=== PATIENT | female | born 1995 | race African-American/Black ===

== ENCOUNTER 2017-06-06 22:25 | Emergency (ER) | payer MEDICAID ==
[~2017-06-06] VITALS: Ht 165.1 cm; Wt 104.3 kg
[2017-06-06 22:47] VITALS: BP 126/57
[2017-06-06 23:44] LABS: Basophils # (auto) 0.1 uL; Basophils % (auto) 0.5 % (0.0-2.0); CONDITION Y; DEFINITIVE SEE PRINTOUT; Eosinophils # (auto) 0.2 uL; Eosinophils % (auto) 1.7 % (0.0-7.0); Hematocrit 34.2 % (36.0-46.0); Hemoglobin 10.8 g/dL (12.2-16.2); Lymphocytes # (auto) 4.3 uL; Lymphocytes % (auto) 42.3 % (10.0-50.0); Mean Corpuscular Hemoglobin 20.4 pg (28.0-32.0); Mean Corpuscular Hgb Conc. 31.4 g/dL (32.0-36.0); Mean Corpuscular Volume 64.8 fL (80.0-100.0); Mean Platelet Volume 7.4 fL (7.4-10.4); Monocytes # (auto) 0.5 uL; Monocytes % (auto) 4.8 % (0.0-12.0); Neutrophils # (auto) 5.2 uL; Neutrophils % (auto) 50.7 % (37.0-80.0); Platelet Count (auto) 377 10^3/uL (140-450); White Blood Cell 10.3 10^3/uL (4.4-10.8)
[2017-06-06 23:57] LABS: Urine Bilirubin Negative (Negative); Urine Color Red (Yellow); Urine Glucose Normal (Normal); Urine Ketone TRACE (Negative); Urine Mucus FEW (None Seen); Urine Nitrite Negative (Negative); Urine RBC 3359 /hpf (0 - 4); Urine Squamous Epithelial Cell FEW /hpf (<5); Urine pH 5.5 (5.0-8.0)
[2017-06-06 23:57] LABS: INR 0.91 (0.9-1.15); Partial Thromboplastin Time 27.3 sec (22.64-33.71); Prothrombin Time 9.9 sec (9.37-12.3)
[2017-06-06 23:59] LABS: Urine Blood 3+ /uL (Negative)
[2017-06-07 00:05] LABS: Red Cell Distribution Width 20.7 % (11.6-16.0)
[2017-06-07 00:08] LABS: Albumin 3.4 g/dL (3.4-5.0); Alkaline Phosphatase 103 U/L (45-117); Anion Gap 9 (5-15); Aspartate Aminotransferase 21 U/L (15-37); Bilirubin, Total < 0.1 mg/dL (0.2-1.0); Blood Urea Nitrogen 9 mg/dL (7-18); Calcium 8.6 mg/dL (8.5-10.1); Carbon Dioxide 25 mmol/L (21-32); Chloride 109 mmol/L (98-107); GFR African American 161 mL/min; GFR Non-African American 133 mL/min; Glucose 103 mg/dL (74-106); Potassium 3.6 mmol/L (3.5-5.1); Sodium 143 mmol/L (136-145); Total Protein 7.6 g/dL (6.4-8.2)
[2017-06-07 01:38] LABS: Anisocytosis Moderate; Hypersegmented Neutrophils Present; Hypochromia Moderate; Microcytosis Marked; Platelet Estimate Adequate
[2017-06-07 01:39] LABS: Ovalocytes FEW
== END 2017-06-07 04:44 | disposition left against medical advice (07) ==
LOC: ER 22:51
DX: N93.9 Abnormal uterine and vaginal bleeding, unspecified (principal); Z53.21 Procedure and treatment not carried out due to patient leaving prior to being seen by health care provider
CPT/HCPCS: 36415; 80053; 81001; 84702; 85025; 85610; 85730